=== PATIENT | female | born 1980 | race Caucasian/White ===

== ENCOUNTER → 2023-12-30 14:26 | Outpatient (REF) | payer OTHER, SELFPAY ==
[2023-12-30 14:39] LABS: % Basophils 0.4 % (0-2); % Eosinophils 1.5 % (0-6); % Lymphocytes 35.6 % (20.5-51.1); % Monocytes 7.7 % (1.7-9.3); % Neutrophils 54.8 % (42.2-75.2); Absolute Eosinophils 0.1 10^3/uL (0-0.7); Absolute Lymphocytes 1.7 10^3/uL (1.2-3.4); Absolute Monocytes 0.4 10^3/uL (0.1-0.6); Absolute Neutrophils 2.6 10^3/uL (1.4-6.5); Hematocrit 30.6 % (37.0-47.0); Hemoglobin 8.9 g/dL (12.0-16.0); Mean Corp Hgb Conc. 29.1 g/dL (33.0-37.0); Mean Corpuscular Hgb 20.3 pg (27.0-31.0); Mean Corpuscular Volume 69.9 fL (81.0-99.0); Mean Platelet Volume 9.3 fL (7.4-10.4); Platelet Count 431 10^3/uL (130-400); Red Blood Cell Count 4.38 10^6/uL (4.20-5.40); White Blood Cell Count 4.7 10^3/uL (4.8-10.8)
== END ==
LOC: OIDL 14:26
PROVIDERS: ATTENDING PHYSICIAN Internal Medicine Hematology & Oncology
DX: D50.9 Iron deficiency anemia, unspecified (principal)
CPT/HCPCS: 85025

== ENCOUNTER → 2024-01-06 16:24 | Outpatient (REF) | payer OTHER, SELFPAY ==
[2024-01-06 15:12] LABS: % Basophils 0.7 % (0-2); % Eosinophils 2.8 % (0-6); % Lymphocytes 32.2 % (20.5-51.1); % Monocytes 7.1 % (1.7-9.3); % Neutrophils 57.2 % (42.2-75.2); Absolute Eosinophils 0.2 10^3/uL (0-0.7); Absolute Lymphocytes 1.9 10^3/uL (1.2-3.4); Absolute Monocytes 0.4 10^3/uL (0.1-0.6); Absolute Neutrophils 3.3 10^3/uL (1.4-6.5); Hemoglobin 9.6 g/dL (12.0-16.0); Mean Corpuscular Hgb 21.3 pg (27.0-31.0); Mean Platelet Volume 9.4 fL (7.4-10.4); Platelet Count 402 10^3/uL (130-400); Red Blood Cell Count 4.51 10^6/uL (4.20-5.40); White Blood Cell Count 5.7 10^3/uL (4.8-10.8)
== END ==
LOC: OIDL 16:24
PROVIDERS: ATTENDING PHYSICIAN Internal Medicine Hematology & Oncology
DX: D50.9 Iron deficiency anemia, unspecified (principal)
CPT/HCPCS: 85025

== ENCOUNTER → 2024-01-20 15:40 | Outpatient (REF) | payer OTHER, SELFPAY ==
[2024-01-20 13:58] LABS: % Basophils 0.3 % (0-2); % Eosinophils 1.1 % (0-6); % Lymphocytes 26.6 % (20.5-51.1); % Monocytes 7.4 % (1.7-9.3); % Neutrophils 64.6 % (42.2-75.2); Absolute Eosinophils 0.1 10^3/uL (0-0.7); Absolute Lymphocytes 1.9 10^3/uL (1.2-3.4); Absolute Monocytes 0.5 10^3/uL (0.1-0.6); Absolute Neutrophils 4.6 10^3/uL (1.4-6.5); Hematocrit 34.6 % (37.0-47.0); Hemoglobin 10.5 g/dL (12.0-16.0); Mean Corp Hgb Conc. 30.3 g/dL (33.0-37.0); Mean Corpuscular Hgb 22.4 pg (27.0-31.0); Mean Corpuscular Volume 73.9 fL (81.0-99.0); Mean Platelet Volume 9.3 fL (7.4-10.4); Platelet Count 365 10^3/uL (130-400); Red Blood Cell Count 4.68 10^6/uL (4.20-5.40); Red Cell Dist. Width 23.4 % (11.5-14.5); White Blood Cell Count 7.2 10^3/uL (4.8-10.8)
== END ==
LOC: OIDL 15:40
PROVIDERS: ATTENDING PHYSICIAN Internal Medicine Hematology & Oncology
DX: D50.9 Iron deficiency anemia, unspecified (principal)
CPT/HCPCS: 85025

== ENCOUNTER → 2024-02-03 16:24 | Outpatient (REF) | payer OTHER, SELFPAY ==
[2024-02-03 13:44] LABS: % Basophils 0.4 % (0-2); % Eosinophils 1.3 % (0-6); % Lymphocytes 25.9 % (20.5-51.1); % Monocytes 6.2 % (1.7-9.3); % Neutrophils 66.2 % (42.2-75.2); Absolute Eosinophils 0.1 10^3/uL (0-0.7); Absolute Lymphocytes 1.4 10^3/uL (1.2-3.4); Absolute Monocytes 0.3 10^3/uL (0.1-0.6); Absolute Neutrophils 3.7 10^3/uL (1.4-6.5); Hematocrit 36.4 % (37.0-47.0); Hemoglobin 11.3 g/dL (12.0-16.0); Mean Corpuscular Hgb 24.2 pg (27.0-31.0); Mean Corpuscular Volume 77.9 fL (81.0-99.0); Mean Platelet Volume 9.5 fL (7.4-10.4); Platelet Count 290 10^3/uL (130-400); Red Blood Cell Count 4.67 10^6/uL (4.20-5.40); Red Cell Dist. Width 24.3 % (11.5-14.5); White Blood Cell Count 5.5 10^3/uL (4.8-10.8)
== END ==
LOC: OIDL 16:24
PROVIDERS: ATTENDING PHYSICIAN Internal Medicine Hematology & Oncology
DX: D50.9 Iron deficiency anemia, unspecified (principal)
CPT/HCPCS: 85025

== ENCOUNTER 2024-11-18 13:25 | Emergency (ER) | payer BC, SELFPAY ==
[2024-11-18 14:13] VITALS: BMI 25.3
[2024-11-18 14:36] LABS: % Basophils 0.4 % (0-2); % Eosinophils 0.6 % (0-6); % Immature Granulocytes 0.3 % (0-0.5); % Lymphocytes 16.1 % (20.5-51.1); % Monocytes 7.1 % (1.7-9.3); % Neutrophils 75.5 % (42.2-75.2); Absolute Eosinophils 0.1 10^3/uL (0-0.7); Absolute Lymphocytes 1.3 10^3/uL (1.2-3.4); Absolute Monocytes 0.6 10^3/uL (0.1-0.6); Hematocrit 36.8 % (37.0-47.0); Hemoglobin 12.2 g/dL (12.0-16.0); Mean Corp Hgb Conc. 33.2 g/dL (33.0-37.0); Mean Corpuscular Hgb 29.5 pg (27.0-31.0); Mean Corpuscular Volume 88.9 fL (81.0-99.0); Mean Platelet Volume 9.4 fL (7.4-10.4); Nucleated Red Blood Cells % 0 %; Platelet Count 296 10^3/uL (130-400); Red Blood Cell Count 4.14 10^6/uL (4.20-5.40); Red Cell Dist. Width 12.3 % (11.5-14.5); White Blood Cell Count 7.9 10^3/uL (4.8-10.8)
[2024-11-18 15:05] LABS: HCG, Serum Qualitative Screen Negative
[2024-11-18 15:10] LABS: ALT (SGPT) 13 U/L (0-35); AST (SGOT) 16 U/L (14-36); Albumin 4.3 g/dl (3.5-5.0); Alkaline Phosphatase 53 U/L (38-126); Blood Urea Nitrogen 15 mg/dl (7-17); Calcium 9.6 mg/dl (8.4-10.2); Carbon Dioxide 23 mmol/L (22-30); Chloride 109 mmol/L (98-107); Estimated Creatinine Clearance 105 ml/min; Glucose 100 mg/dl (70-99); Sodium 141 mmol/L (135-145); Total Bilirubin 0.6 mg/dl (0.2-1.3); Total Protein 6.7 g/dl (6.3-8.2); eGFR > 60.00
--- NOTE | 2024-11-18 16:04 | ED.GENMED ---
History of Present Illness
General
Chief Complaint: Vaginal Bleeding
Source: patient
Exam Limitations: none
Time Seen by Provider: 11/18/24 14:00
Nursing documentation reviewed up to this point in time: agreed with
History of Present Illness
History of Present Illness:
see MDM
Past History
Past History
ED Past Medical History: Other (Crohn's disease, anemia, migraines)
ED Past Surgical History: Bowel resection
Social History
Tobacco: Non-smoker
Alcohol: None
Family History
Family History: Hypertension
Review of Systems
Review of Systems
Allergies reviewed?: Yes
All Other Systems: Not applicable
Phy Exam
Physical Exam
Physical Exam:
see mdm
Course
Orders/Labs/Results
Orders:
Orders
11/18/24 14:22
Pelvis & Transvaginal US [US Pelvis W Transvag Combined] Urgent
Comment:
Reason For Exam: heavy vag bleeding
11/18/24 14:23
0.9% Sodium Chloride 1000 ml [Nss] 1,000 ml IV BOLUS
Test Result ONCE
11/18/24 14:26
Complete Blood Count/With Diff Urgent
Comprehensive Metabolic Panel Urgent
HCG, Serum Qualitative Screen Urgent
11/18/24 17:23
Tranexamic Acid [Cyklokapron] 1,300 mg PO NOW STA
Abnormal Lab Results
11/18/24
14:26
RBC 4.14 L 10^6/uL
(4.20-5.40)
Hct 36.8 L %
(37.0-47.0)
Neutrophils % 75.5 H %
(42.2-75.2)
Lymphocytes % 16.1 L %
(20.5-51.1)
Chloride 109 H mmol/L
(98-107)
Glucose 100 H mg/dl
(70-99)
11/18/24 14:26
11/18/24 14:26
Vital Signs
Initial and Last Documented VS:
Initial Vital Signs
Temp Pulse Resp Pulse Ox
36.7 C 114 15 98
11/18/24 13:30 11/18/24 13:30 11/18/24 13:30 11/18/24 13:30
Last Documented Vital Signs
Temp Pulse Resp BP Pulse Ox
36.7 C 75 18 129/87 100
11/18/24 13:30 11/18/24 17:24 11/18/24 17:24 11/18/24 17:24 11/18/24 17:24
MDM/Problems Addressed
Differential Diagnosis Includes:
see MDM
MDM/Problems Addressed:
Note:
CHIEF COMPLAINT(S)
Heavy menstrual bleeding.
HISTORY OF PRESENT ILLNESS
The patient is a 44-year-old female with a past medical history of heavy menstrual periods presenting with increased menstrual flow, reported as 'double' the usual amount, which started last night. The patient typically has clot formation during her
periods but notes an atypical pattern of several clots on both sides this time. Her menstruation began earlier than expectedthis time; her lmp was 5/30.. She mentions that overnight bleeding last night was not significant, but by this morning, the
bleeding intensified, leading her to use a menstrual cup and period underwear, which she changed 2 times. Historically, during her first two days, the patient employs these measures to manage flow and avoid leakage. The patient describes mild pain
and denies severe discomfort or symptoms suggestive of syncope. She has a history of iron infusions every 6-8 months, attributed to chronic anemia associated with menstrual blood loss.
The patient has undergone a comprehensive evaluation for her condition in the past, around two years ago, which she describes as being particularly focused on her thyroid function due to her bleeding, resulting in normal findings. She has declined
hormonal therapy for management. Previously, during evaluation for similar symptoms, her workup included imaging and a recommendation for an oral contraceptive, which she was hesitant to initiate. She reports a regular cycle typically lasting about
25 days.
Notably, a history of crohns is mentioned, including an operation in 2018 with no resultant colostomy. There are no significant gastrointestinal symptoms currently reported.
SOCIAL HISTORY
The patient has children, with the youngest being 13 years old. She perceives no possibility of .
MEDICATIONS
The patient is not currently on any medications.
REVIEW OF SYSTEMS
- Gastrointestinal: No bloody stools, no significant gastrointestinal symptoms.
- Gynecological: Heavy menstrual bleeding with multiple clots, mild associated pain. No evidence of .
PHYSICAL EXAM
Nursing notes reviewed and vital signs reviewed.
PLAN
Evaluation will include a urine test and imaging to assess the source and extent of uterine bleeding. Management options discussed include the use of tranexamic acid (TXA) to manage acute heavy menstrual bleeding. The patient has expressed
a preference for TXA over hormonal interventions.
DIFFERENTIAL DIAGNOSIS
The Differential Diagnosis includes, in no particular order and is not limited to:
1. Dysfunctional uterine bleeding
2. Endometrial hyperplasia
3. Uterine fibroids
4. Adenomyosis
5. Uterine polyps
6. Thyroid dysfunction
7. Coagulopathy
8. Endometrial carcinoma
9. complications (e.g., early miscarriage)
10. Hematologic disorders causing abnormal bleeding
Disposition:
ASSESSMENT
The 44-year-old female presents with heavy menstrual bleeding, more pronounced than her usual cycle due to a known history of uterine fibroids.
PLAN
The patient will take tranexamic acid (TXA) three times daily for up to five days as needed for management of acute heavy menstrual bleeding. Outpatient follow-up with [facility] is advised.
INDEPENDENT REVIEW OF LABS AND INTERPRETATION OF TESTS
My independent review of the ultrasound reveals normal endometrial findings with incidental findings, including likely Nabothian cysts and a 4-millimeter hyperechoic calcification along the right ovary that requires outpatient follow-up.
MEDICATION RECONCILIATION
Tranexamic acid prescribed, to be taken three times daily for up to five days as needed.
MEDICAL DECISION MAKING
1. Number & Complexity of Problems: Chronic conditions affecting care include uterine fibroids and history of heavy menstrual cycles. Differential diagnoses considered include dysfunctional uterine bleeding and potential complication from fibroids.
2. Risk: Outpatient management is chosen based on current stable hemodynamics and previous similar episodes without acute complications, coupled with planned follow-up for further assessment.
PATHOLOGIES TO CONSIDER
Dysfunctional uterine bleeding, potential complications of uterine fibroids.
*Pulse Oximetry
SaO2: 98
Oxygen Mode of Delivery: Room air
ED Attending Note
-
Portions of this chart may have been created with voice recognition software.� Occasional wrong word or��sound alike� substitutions may have occurred due to the inherent limitations of voice recognition software.
Discharge Plan
Departure
Patient Disposition: Home (Routine Discharge)
Date of Disposition: 11/18/24
Time of Disposition: 17:26
Patient with high blood pressure during this ER visit?: No
Condition: Fair
Covid-19: Not Applicable
Discharge Problem:
DUB (dysfunctional uterine bleeding)
Instructions: Heavy Periods (DC)
Prescriptions:
New
tranexamic acid 650 mg tablet
1,300 mg PO TID PRN (Reason: vaginal bleeding) 5 Days Qty: 30 0RF
No Action
ergotamine-caffeine 1 EACH tablet
2 tab PO DIRECTED PRN (Reason: migraines)
Patient Comments:
2 on onset of migraine and then 1 q 1/2hr
pantoprazole [Protonix] 20 MG tablet,delayed release (DR/EC)
20 mg PO DAILY
prochlorperazine maleate 10 MG tablet
10 mg PO Q8HPRN PRN (Reason: nausea and vomiting) Qty: 30 0RF
duloxetine 30 MG capsule,delayed release(DR/EC)
30 mg PO DAILY
rimegepant [Nurtec ODT] 75 MG tablet,disintegrating
75 mg PO .EVERYOTHERDAY
Referrals:
Evangelina Fuentes, DO [Active, Gynecology] - Follow up in 1 week
NONE,* [Family Provider, Internal Medicine]
Activity Restrictions/Additional Instructions:
You had no significant concerns on your ultrasound, you did have some findings that do require follow-up. In the meantime for this bleeding you can try TXA 3 times a day until the bleeding subsides. Follow-up with your [facility]. Return for
significant bleeding, soaking a pad front to back, [id number] over 1 hour for 2 hours in a row or more, passing out, severe lightheadedness or any concern
Interventions
Interventions:
*Risk Screen - Suicide Last Done: 11/18/24 13:30
*General Assessment Last Done: 11/18/24 13:30
*Neglect/Abuse Screening Last Done: 11/18/24 13:30
*ED- Fall Risk Assessment Last Done: 11/18/24 14:13
*ED COVID-19 Vaccine History Last Done: 11/18/24 13:30
*Nursing Disposition Last Done: 11/18/24 17:36
ED-Female Genitourinary Assessment Last Done: 11/18/24 14:13
Discharge Date and Time
Discharge Date/Time: 11/18/24 17:36
Print Language: MICRONESIAN
[2024-11-18 17:04] VITALS: BP 136/80
[2024-11-18 17:24] VITALS: BP 129/87
[2024-11-18] MEDS: CYKLOKAPRON 1300 MG PO (17:34)
== END 2024-11-18 17:36 | disposition home or self-care (01) ==
LOC: EMR 13:25
PROVIDERS: Physician Assistant; EMERGENCY PHYSICIAN Emergency Medicine
DX: N93.8 Other specified abnormal uterine and vaginal bleeding (principal); D25.9 Leiomyoma of uterus, unspecified; K50.90 Crohn's disease, unspecified, without complications
CPT/HCPCS: 99284; 76830; 76856; 80053; 84703; 85025

== ENCOUNTER → 2025-05-12 10:40 | Outpatient (REF) | payer BC, SELFPAY ==
[2025-05-12 11:42] LABS: Hematocrit 38.6 % (37.0-47.0); Hemoglobin 12.0 g/dL (12.0-16.0); Mean Corp Hgb Conc. 31.1 g/dL (33.0-37.0); Mean Corpuscular Volume 81.4 fL (81.0-99.0); Nucleated Red Blood Cells % 0 %; Platelet Count 409 10^3/uL (130-400); Red Cell Dist. Width 14.7 % (11.5-14.5)
[2025-05-12 12:14] LABS: Iron 37 ug/dl (37-170)
[2025-05-12 12:24] LABS: Total Iron Binding Capacity 478 ug/dl (265-497)
[2025-05-12 12:54] LABS: Ferritin 5.2 ng/ml (6.24-137)
== END ==
LOC: WDC 10:40
PROVIDERS: ATTENDING PHYSICIAN Student in an Organized Health Care Education/Training Program; OTHER PHYSICIAN Internal Medicine Hematology & Oncology
DX: R92.8 Other abnormal and inconclusive findings on diagnostic imaging of breast (principal); D50.9 Iron deficiency anemia, unspecified
CPT/HCPCS: 36415; 77061; 77065; 82728; 83540; 83550; 85025